=== PATIENT | male | born 1950 ===

== ENCOUNTER 2017-08-05 05:54 | Day surgery (SDC) | payer OTHER ==
[2017-08-02 08:53] VITALS: BMI 24.8
[2017-08-05] MEDS ORDERED: Dextrose 5%/0.45% NS 1,000 ML IV ONE (07:04)
[2017-08-05] MEDS ORDERED: Lidocaine 2% Jelly (Uro-Jet) ONE (08:26)
[2017-08-05] MEDS ORDERED: Propofol 10 mg/ml Inj (20 ML) ONE (08:57)
[2017-08-05] MEDS ORDERED: Gentamicin 160 MG in Sodium Chloride 0.9% 100 ML IVPB ONE (09:00)
[2017-08-05] MEDS ORDERED: HYDROmorphone 0.5 mg/0.5 ml ISec IVP PRN (09:43)
[2017-08-05] MEDS ORDERED: Lactated Ringer's 1,000 ML IV SCH (09:45)
[2017-08-05 10:46] VITALS: PULSE 52; RESP 15
[2017-08-05 12:17] VITALS: BP 125/55; TEMP 97.4; O2SAT 100
--- NOTE | 2017-08-05 12:39 | OP ---
PROCEDURE DATE: 08/05/2017. PREOPERATIVE DIAGNOSIS: Elevated prostate-specific antigen 4.6. POSTOPERATIVE DIAGNOSIS: Elevated prostate-specific antigen 4.6. PROCEDURE: Transrectal ultrasound, diagnostic. Transrectal ultrasound guidance and prostatic biopsy. SURGEON: Anand Diane MD. DESCRIPTION OF PROCEDURE: The patient signed the consent using the [employer] device and assured me that he has not taken any NSAIDs or aspirin in the last 10 days. He was also told of rare, but serious consequences of heavy bleeding and sepsis and infection. He signed the consent. He was brought to the operating room, he was given gentamicin 160 mg IV piggyback and Rocephin 1 gm IV piggyback, placed in lithotomy position and then the rectum was cleansed with Betadine. The transducer was introduced into the prostate, it was very enlarged with a significant intravesical component. The total size of the prostate was 83.8 cm2. No specific hypoechoic lesions were noted. At this point, we performed prostatic biopsy using the transducer for guidance. Two biopsies were obtained in each of 6 sextants in 6 separate cups. Pressure was then maintained in the rectum with the transducer for several minutes and upon its removal, no significant bleeding was noted. The patient tolerated the procedure well. Anand Diane MD
== END 2017-08-05 12:00 | disposition home or self-care (01) ==
LOC: C.SDS 05:54
PROVIDERS: ATTEND Urology
DX: N40.0 Benign prostatic hyperplasia without lower urinary tract symptoms (principal); Z79.84 Long term (current) use of oral hypoglycemic drugs; Z79.899 Other long term (current) drug therapy; Z79.4 Long term (current) use of insulin; E03.9 Hypothyroidism, unspecified; E11.9 Type 2 diabetes mellitus without complications; I10 Essential (primary) hypertension
CPT/HCPCS: 55700; 82948; 88305; 88342; J1580; J7042